=== PATIENT | female | born 1935 | race Caucasian/White ===

== ENCOUNTER → 2020-08-28 | Outpatient (CLI) | payer MEDICARE, OTHER ==
[~2020-08-28] MED LIST: CHOL40002 PO; LISI40TA PO; MELA1TAB6 PO; NIAC500T9 PO; RED600CA2 PO; SIMV20TA19 PO; TOLT2TAB4 PO; UBID100C41 PO
== END | disposition home or self-care (01) ==
LOC: STAR 14:42
PROVIDERS: ATTEND Anesthesiology
DX: Z20.828 Contact with and (suspected) exposure to other viral communicable diseases (principal)
CPT/HCPCS: 87635

== ENCOUNTER 2020-09-02 11:04 | Day surgery (SDC) | payer MEDICARE, OTHER ==
[~2020-09-02] VITALS: Ht 160 cm; Wt 55.5 kg
[2020-09-02] MEDS ORDERED: AMLO-150 PO (11:38)
[2020-09-02] MEDS ORDERED: OXYB-39 PO (11:38)
[2020-09-02 11:40] VITALS: BP 152/72
[2020-09-02] MEDS ORDERED: LACTATED RINGERS 1,000 ML IV SCH (12:00)
[2020-09-02] MEDS ORDERED: CHLORHEXIDINE 15 ML UDC MM ONE (12:00)
[2020-09-02 12:13] LABS: CHLORIDE 111 mmol/L (98-107)
[2020-09-02 12:20] LABS: ALANINE AMINOTRANSFERASE 21 U/L (12-78); ALBUMIN 3.7 g/dL (3.4-5.0); ALKALINE PHOSPHATASE 67 U/L (45-117); ANION GAP 8 mmol/L (5-15); BILIRUBIN,TOTAL 1.1 mg/dL (0.2-1.0); CALCIUM 9.4 mg/dL (8.5-10.1); CREATININE 0.96 mg/dL (0.55-1.02); TOTAL PROTEIN 7.9 g/dL (6.4-8.2)
[2020-09-02] MEDS ORDERED: FENTANYL PF 100 MCG/2ML ONE (12:38)
[2020-09-02] MEDS ORDERED: LIDOCAINE-MPF 2% ,5ML ONE (13:09)
[2020-09-02] MEDS ORDERED: PROPOFOL 10 MG/ML, 20ML ONE (13:09)
[2020-09-02] MEDS ORDERED: DEXAMETHASONE 4 MG/ML, 1ML ONE (13:09)
[2020-09-02] MEDS ORDERED: ONDANSETRON 2MG/ML, 2ML ONE (13:09)
[2020-09-02] MEDS ORDERED: CEFAZOLIN 1,000 MG ONE (13:17)
== END 2020-09-02 15:45 | disposition home or self-care (01) ==
LOC: OUT 11:04
PROVIDERS: ATTEND Urology
DX: T83.122A Displacement of indwelling ureteral stent, initial encounter (principal); N13.1 Hydronephrosis with ureteral stricture, not elsewhere classified; I10 Essential (primary) hypertension; Z79.899 Other long term (current) drug therapy; Z87.442 Personal history of urinary calculi; Z87.440 Personal history of urinary (tract) infections; Z88.0 Allergy status to penicillin; Y83.8 Other surgical procedures as the cause of abnormal reaction of the patient, or of later complication, without mention of misadventure at the time of the procedure
CPT/HCPCS: 36415; 52310; 80053; 93005; J0690; J1100; J2405; J2704; J3010; J7120; 76000